=== PATIENT | female | born 1980 | race Caucasian/White ===

== ENCOUNTER 2017-09-09 02:44 | Emergency (ER) | payer MEDICAID ==
[2017-09-09] MEDS: predniSONE 20 MG TAB PO (06:47)
[2017-09-09] MEDS: ALBUTEROL 0.083% (NEB) 2.5 MG/3 ML AMP HHN (07:04)
== END 2017-09-09 07:54 | disposition home or self-care (01) ==
LOC: FTE 02:44
DX: R05 Cough (principal)
CPT/HCPCS: 94664; 99284-25

== ENCOUNTER 2018-01-03 08:28 | Emergency (ER) | payer MEDICAID ==
[2018-01-03] MEDS: LIDOCAINE/MYLANTA 40 ML BTL PO (08:57)
[2018-01-03 09:20] LABS: ADD MAN DIFF? NO
[2018-01-03 09:23] LABS: BASOPHILS % 0.5 % (0.0-2.0); EOSINOPHILS # 0.1 10^3/ul (0.0-0.5); EOSINOPHILS % 1.6 % (0.0-7.0); HEMATOCRIT 40.8 % (37.0-47.0); HEMOGLOBIN 13.9 g/dl (12.0-16.0); LYMPHOCYTES # 1.7 10^3/ul (0.8-2.9); LYMPHOCYTES % 19.2 % (15.0-51.0); MEAN CORPUSCULAR HEMOGLOBIN 32.2 pg (29.0-33.0); MEAN CORPUSCULAR HGB CONC 34.1 g/dl (32.0-37.0); MEAN CORPUSCULAR VOLUME 94.4 fl (82.0-101.0); MEAN PLATELET VOLUME 11.5 fl (7.4-10.4); MONOCYTE # 0.7 10^3/ul (0.3-0.9); MONOCYTES % 8.1 % (0.0-11.0); NEUTROPHIL # 6.1 10^3/ul (1.6-7.5); NEUTROPHILS % 70.4 % (39.0-77.0); PLATELET COUNT 238 10^3/UL (140-415); RED BLOOD COUNT 4.32 10^6/ul (4.20-5.40); RED CELL DISTRIBUTION WIDTH 12.4 % (11.5-14.5)
[2018-01-03 09:23] LABS: WHITE BLOOD COUNT 8.6 10^3/ul (4.8-10.8)
[2018-01-03 09:25] LABS: ADD UMIC NO; UR ASCORBIC ACID 40 mg/dL (NEGATIVE); UR BACTERIA FEW /HPF (NONE SEEN); UR BILIRUBIN (Dip) NEGATIVE (NEGATIVE); UR BLOOD (Dip) NEGATIVE (NEGATIVE); UR CLARITY SLIGHTLY CLOUDY (CLEAR); UR COLOR YELLOW (YELLOW); UR GLUCOSE (Dip) NEGATIVE (NEGATIVE); UR KETONES (Dip) 1+ mg/dL (NEGATIVE); UR LEUKOCYTE ESTERASE (Dip) NEGATIVE Leu/ul (NEGATIVE); UR NITRITE (Dip) NEGATIVE (NEGATIVE); UR RBC 3 /HPF (0-5); UR SPECIFIC GRAVITY (Dip) 1.016 (1.003-1.030); UR SQUAMOUS EPITHELIAL CELL FEW /HPF (FEW); UR TOTAL PROTEIN (Dip) NEGATIVE (NEGATIVE); UR UROBILINOGEN (Dip) NEGATIVE (NEGATIVE); UR WBC 1 /HPF (0-5)
[2018-01-03 09:49] LABS: ALANINE AMINOTRANSFERASE 29 IU/L (13-69); ALBUMIN 4.5 g/dl (3.3-4.9); ALBUMIN/GLOBULIN RATIO 1.25; ALKALINE PHOSPHATASE 60 IU/L (42-121); ANION GAP 18 (8-16); ASPARTATE AMINO TRANSFERASE 25 IU/L (15-46); BILIRUBIN,INDIRECT 0.7 mg/dl (0-1.1); BILIRUBIN,TOTAL 0.7 mg/dl (0.2-1.3); BLOOD UREA NITROGEN 10 mg/dl (7-20); CALCIUM 9.6 mg/dl (8.4-10.2); CARBON DIOXIDE 24 mmol/L (21-31); CHLORIDE 104 mmol/L (97-110); GLUCOSE 99 mg/dl (70-220); LIPASE 79 U/L (23-300); POTASSIUM 4.2 mmol/L (3.5-5.1); SODIUM 142 mmol/L (135-144); TOTAL PROTEIN 8.1 g/dl (6.1-8.1)
[2018-01-03] MEDS: RANITIDINE 150 MG TAB PO (10:58)
== END 2018-01-03 13:30 | disposition home or self-care (01) ==
LOC: FTE 08:28
DX: O26.891 Other specified pregnancy related conditions, first trimester (principal); R10.13 Epigastric pain; R10.2 Pelvic and perineal pain; Z3A.01 Less than 8 weeks gestation of pregnancy
CPT/HCPCS: 36415; 76705; 76801; 76817; 80053; 81001; 81003; 81025; 83690; 84702; 85025; 93005; 99285-25

== ENCOUNTER 2018-08-05 07:31 | Outpatient (CLI) | payer MEDICAID | END 2018-08-05 09:05 | disposition home or self-care (01) | LOC: OBT 07:31 → L-D 07:33 → OBT 09:05 | DX: O24.419 Gestational diabetes mellitus in pregnancy, unspecified control (principal); O09.523 Supervision of elderly multigravida, third trimester; Z3A.37 37 weeks gestation of pregnancy | CPT/HCPCS: 76818 ==

== ENCOUNTER 2018-08-16 17:32 | Observation (INO) | payer MEDICAID ==
[2018-08-16] MEDS ORDERED: LACTATED RINGER'S 1,000 ML IV (18:53)
[2018-08-16] MEDS: LACTATED RINGER'S 1,000 ML IV (18:53)
[2018-08-16] MEDS ORDERED: LIDOCAINE 1% (MPF) 30 ML INJ INJ (19:00)
[2018-08-16] MEDS ORDERED: BUTORPHANOL 2 MG INJ IV (19:00)
[2018-08-16] MEDS ORDERED: MISOPROSTOL 200 MCG TAB PR (19:00)
[2018-08-16] MEDS ORDERED: BUTORPHANOL 1 MG INJ IV (19:00)
[2018-08-16] MEDS ORDERED: CARBOPROST 250 MCG INJ IM (19:00)
[2018-08-16] MEDS: MISOPROSTOL 50 MCG CAPSULE VAG (19:00)
[2018-08-16] MEDS ORDERED: IBUPROFEN 600 MG TAB PO (19:00)
[2018-08-16] MEDS ORDERED: DEXTROSE 5%-LR 1,000 ML IV (19:00)
[2018-08-16] MEDS ORDERED: METHYLERGONOVINE 0.2 MG INJ IM (19:00)
[2018-08-16] MEDS ORDERED: OXYTOCIN 30 UNITS/LR 500 ML IV ×4 (19:00)
== END 2018-08-16 21:30 | disposition left against medical advice (07) ==
LOC: L-D 17:32
DX: O09.523 Supervision of elderly multigravida, third trimester (principal); Z3A.39 39 weeks gestation of pregnancy; Z53.21 Procedure and treatment not carried out due to patient leaving prior to being seen by health care provider
CPT/HCPCS: 76815; 99217

== ENCOUNTER 2018-08-19 11:14 | Inpatient (IN) | payer MEDICAID ==
[2018-08-19] MEDS ORDERED: MISOPROSTOL 200 MCG TAB PR (14:00)
[2018-08-19] MEDS ORDERED: IBUPROFEN 600 MG TAB PO (14:00)
[2018-08-19] MEDS ORDERED: LIDOCAINE 1% (MPF) 30 ML INJ INJ (14:00)
[2018-08-19] MEDS ORDERED: BUTORPHANOL 1 MG INJ IV (14:00)
[2018-08-19] MEDS ORDERED: METHYLERGONOVINE 0.2 MG INJ IM (14:00)
[2018-08-19] MEDS ORDERED: OXYTOCIN 30 UNITS/LR 500 ML IV ×2 (14:00)
[2018-08-19] MEDS ORDERED: CARBOPROST 250 MCG INJ IM (14:00)
[2018-08-19 14:37] LABS: ADD MAN DIFF? NO
[2018-08-19 14:40] LABS: BASOPHILS % 0.3 % (0.0-2.0); EOSINOPHILS % 0.5 % (0.0-7.0); HEMOGLOBIN 12.5 g/dl (12.0-16.0); LYMPHOCYTES # 1.2 10^3/ul (0.8-2.9); LYMPHOCYTES % 14.4 % (15.0-51.0); MEAN CORPUSCULAR HGB CONC 33.8 g/dl (32.0-37.0); MEAN CORPUSCULAR VOLUME 97.6 fl (82.0-101.0); MEAN PLATELET VOLUME 12.4 fl (7.4-10.4); MONOCYTE # 0.6 10^3/ul (0.3-0.9); MONOCYTES % 7.3 % (0.0-11.0); NEUTROPHIL # 6.6 10^3/ul (1.6-7.5); PLATELET COUNT 165 10^3/UL (140-415); RED BLOOD COUNT 3.79 10^6/ul (4.20-5.40); RED CELL DISTRIBUTION WIDTH 14.3 % (11.5-14.5)
[2018-08-19 14:40] LABS: WHITE BLOOD COUNT 8.6 10^3/ul (4.8-10.8)
[2018-08-19] MEDS: LACTATED RINGER'S 1,000 ML IV ×2 (14:44→21:29)
[2018-08-19 14:59] LABS: INR 0.88; PT RATIO 0.9
[2018-08-19 15:00] LABS: PARTIAL THROMBOPLASTIN TIME 25.8 Sec (23.0-35.0)
[2018-08-19 19:16] LABS: RAPID PLASMA REAGIN NONREACTIVE (NR)
[2018-08-19] MEDS: MISOPROSTOL 50 MCG CAPSULE PO (21:28)
[2018-08-20] MEDS: MISOPROSTOL 50 MCG CAPSULE PO ×3 (01:33→09:37)
[2018-08-20] MEDS: LACTATED RINGER'S 1,000 ML IV ×2 (05:05→13:02)
[2018-08-20] MEDS ORDERED: OXYTOCIN 30 UNITS/LR 500 ML BAG IV (07:00)
[2018-08-20] MEDS: BUTORPHANOL 2 MG INJ IV ×2 (11:01→13:03)
[2018-08-20] MEDS: DEXTROSE 5%-LR 1,000 ML IV (13:00)
[2018-08-20] MEDS ORDERED: MINERAL OIL LIGHT 10 ML VIAL (13:25)
[2018-08-20] MEDS: MINERAL OIL LIGHT 10 ML VIAL TOP (14:30)
[2018-08-20] MEDS ORDERED: CEFAZOLIN 2 GM/50 ML (PMX) 50 ML IVPB (14:30)
[2018-08-20] MEDS ORDERED: OXYTOCIN 10 UNIT INJ (14:32)
[2018-08-20] MEDS ORDERED: FENTAnyl 50 MCG/ML VIAL (14:32)
[2018-08-20] MEDS ORDERED: ROCURONIUM 50 MG INJ (14:43)
[2018-08-20] MEDS ORDERED: PROPOFOL 20 ML (14:43)
[2018-08-20] MEDS ORDERED: SUCCINYLCHOLINE CHLORIDE 100 MG/5 ML SYG IV (14:43)
[2018-08-20] MEDS ORDERED: KETOROLAC 30 MG INJ (14:44)
[2018-08-20] MEDS ORDERED: METOCLOPRAMIDE 10 MG INJ (14:44)
[2018-08-20] MEDS ORDERED: ONDANSETRON 4 MG INJ (14:44)
[2018-08-20] MEDS ORDERED: DEXAMETHASONE 4 MG/ML 1 ML INJ (14:44)
[2018-08-20] MEDS ORDERED: ROPIVACAINE 0.5 % 30 ML VIAL (14:48)
[2018-08-20] MEDS ORDERED: FENTAnyl 50 MCG/ML VIAL IV ×6 (15:00→19:00)
[2018-08-20] MEDS ORDERED: METOCLOPRAMIDE 10 MG INJ IV ×2 (15:00→19:00)
[2018-08-20] MEDS ORDERED: OXYCODONE/ACETAMINOPHEN (5/325) TAB PO ×4 (15:00→19:00)
[2018-08-20] MEDS ORDERED: DIPHENHYDRAMINE 50 MG INJ IV ×2 (15:00→19:00)
[2018-08-20] MEDS ORDERED: ONDANSETRON 4 MG INJ IV ×2 (15:00→19:00)
[2018-08-20] MEDS ORDERED: HYDROmorphONE 1 MG/5 ML IV SYRINGE IV ×6 (15:00→19:00)
[2018-08-20] MEDS ORDERED: MISOPROSTOL 200 MCG TAB PR (15:30)
[2018-08-20] MEDS ORDERED: LANOLIN HPA 1 PKT TOP (15:30)
[2018-08-20] MEDS ORDERED: CARBOPROST 250 MCG INJ IM (15:30)
[2018-08-20] MEDS ORDERED: METHYLERGONOVINE 0.2 MG INJ IM (15:30)
[2018-08-20] MEDS ORDERED: NACL 0.9% 3 ML SYG IV (15:30)
[2018-08-20] MEDS ORDERED: OXYTOCIN 30 UNITS/LR 500 ML IV (15:30)
[2018-08-20] MEDS: CEFAZOLIN 2 GM/50 ML (PMX) 50 ML IVPB ×2 (15:54→23:53)
[2018-08-20] MEDS: OXYTOCIN 30 UNITS/LR 500 ML IV ×3 (15:56→18:03)
[2018-08-20] MEDS: MEPERIDINE 25 MG INJ IV (16:20)
[2018-08-20] MEDS: IBUPROFEN 600 MG TAB PO (18:00)
[2018-08-20] MEDS ORDERED: EPHEDrine SULFATE 50 MG/5 ML SYG IV (19:00)
[2018-08-20] MEDS ORDERED: MEPERIDINE 25 MG INJ IV (19:00)
[2018-08-20] MEDS: KETOROLAC 30 MG INJ IV (21:13)
[2018-08-21] MEDS ORDERED: HYDROmorphONE 0.5 MG/0.5 ML SYG (00:44)
[2018-08-21] MEDS: HYDROmorphONE 0.5 MG/0.5 ML SYG IV ×2 (00:56→08:23)
[2018-08-21] MEDS: LACTATED RINGER'S 1,000 ML IV (05:20)
[2018-08-21] MEDS: KETOROLAC 30 MG INJ IV ×2 (05:20→11:51)
[2018-08-21] MEDS: CEFAZOLIN 2 GM/50 ML (PMX) 50 ML IVPB (06:58)
[2018-08-21 08:08] LABS: ADD MAN DIFF? NO
[2018-08-21 08:13] LABS: BASOPHILS % 0.1 % (0.0-2.0); EOSINOPHILS % 0.1 % (0.0-7.0); HEMATOCRIT 27.9 % (37.0-47.0); HEMOGLOBIN 9.3 g/dl (12.0-16.0); LYMPHOCYTES % 6.4 % (15.0-51.0); MEAN CORPUSCULAR HEMOGLOBIN 33.1 pg (29.0-33.0); MEAN CORPUSCULAR HGB CONC 33.3 g/dl (32.0-37.0); MEAN CORPUSCULAR VOLUME 99.3 fl (82.0-101.0); MEAN PLATELET VOLUME 12.6 fl (7.4-10.4); MONOCYTE # 1.1 10^3/ul (0.3-0.9); MONOCYTES % 6.8 % (0.0-11.0); NEUTROPHIL # 13.8 10^3/ul (1.6-7.5); NEUTROPHILS % 86.2 % (39.0-77.0); PLATELET COUNT 141 10^3/UL (140-415); RED BLOOD COUNT 2.81 10^6/ul (4.20-5.40); RED CELL DISTRIBUTION WIDTH 13.7 % (11.5-14.5)
[2018-08-21] MEDS: OXYCODONE/ACETAMINOPHEN (5/325) TAB PO ×2 (14:56→18:45)
[2018-08-21] MEDS: IBUPROFEN 600 MG TAB PO ×3 (17:18→23:30)
[2018-08-21] MEDS: FERROUS SULFATE (EC) 325 MG TAB PO (20:56)
[2018-08-22] MEDS: IBUPROFEN 600 MG TAB PO ×3 (05:56→17:35)
[2018-08-22 06:38] LABS: ADD MAN DIFF? NO
[2018-08-22 06:40] LABS: BASOPHILS % 0.3 % (0.0-2.0); EOSINOPHILS # 0.1 10^3/ul (0.0-0.5); HEMATOCRIT 30.4 % (37.0-47.0); LYMPHOCYTES # 1.8 10^3/ul (0.8-2.9); LYMPHOCYTES % 13.8 % (15.0-51.0); MEAN CORPUSCULAR HEMOGLOBIN 33.2 pg (29.0-33.0); MEAN CORPUSCULAR HGB CONC 32.9 g/dl (32.0-37.0); MEAN PLATELET VOLUME 12.2 fl (7.4-10.4); MONOCYTE # 0.8 10^3/ul (0.3-0.9); MONOCYTES % 6.2 % (0.0-11.0); NEUTROPHIL # 10.3 10^3/ul (1.6-7.5); NEUTROPHILS % 77.9 % (39.0-77.0); PLATELET COUNT 162 10^3/UL (140-415); RED BLOOD COUNT 3.01 10^6/ul (4.20-5.40); RED CELL DISTRIBUTION WIDTH 14.6 % (11.5-14.5)
[2018-08-22 06:40] LABS: WHITE BLOOD COUNT 13.2 10^3/ul (4.8-10.8)
[2018-08-22] MEDS: OXYCODONE/ACETAMINOPHEN (5/325) TAB PO ×3 (06:49→20:49)
[2018-08-22] MEDS: FERROUS SULFATE (EC) 325 MG TAB PO ×2 (09:14→20:16)
[2018-08-22 12:46] LABS: HEPATITIS B SURFACE ANTIGEN NEGATIVE (NEGATIVE)
[2018-08-22] MEDS: DIPHENHYDRAMINE 25 MG CAP PO (22:47)
[2018-08-23] MEDS: IBUPROFEN 600 MG TAB PO ×3 (00:49→11:29)
[2018-08-23] MEDS: OXYCODONE/ACETAMINOPHEN (5/325) TAB PO ×3 (01:02→10:12)
[2018-08-23] MEDS: FERROUS SULFATE (EC) 325 MG TAB PO (09:00)
[2018-08-23] MEDS: SENNA TAB PO (10:57)
[2018-08-23] MEDS: MAGNESIUM HYDROXIDE 30ML CUP PO (10:57)
[2018-08-24] MEDS ORDERED: IBUPROFEN 600 MG TAB PO (01:00)
== END 2018-08-23 17:22 | disposition home or self-care (01) | DRG 788 ==
LOC: OBT 11:14 → L-D 08-20 14:22 → OBT 12:50 → PP1 08-20 17:42 → L-D 12:50
PROVIDERS: Obstetrics & Gynecology
PROC: 10D00Z1 Extraction of Products of Conception, Low, Open Approach (ICD-10-PCS; principal; 2018-08-20 14:30)
DX: O24.429 Gestational diabetes mellitus in childbirth, unspecified control (principal); O76 Abnormality in fetal heart rate and rhythm complicating labor and delivery; O66.5 Attempted application of vacuum extractor and forceps; Z3A.39 39 weeks gestation of pregnancy; Z37.0 Single live birth
CPT/HCPCS: 82962; 85025; 85610; 85730; 86592; 86850; 86900; 86901; 87340; 99464